=== PATIENT | male | born 1980 | race Caucasian/White ===

== ENCOUNTER → 2017-01-05 15:09 | Emergency (ER) | payer SELFPAY ==
[~2017-01-05 15:09] MED LIST: AMBIEN5 MG PO; ATENOLOL25 MG PO; ATIVAN1 M1 PO; AUGMENTIN 875-1 EAC1 PO; AUGMENTIN 875-11 TAB PO; Atenolol PO; BLOOD PRESSURE MED; CEFDINIR300 MG PO; CLEOCIN HCL300 M1 PO; COMPAZINE10 M PO; COMPAZINE10 MG PO; COMPAZINE25 M1 PR; COMPAZINE25 M1 RC; COMPAZINE25 MG/SUPP; COMPAZINE25 MG/SUPP PR; COZAAR25 MG; FLORINEF PO; HALDOL1 MG/TA1 PO; HALOPERIDOL1 MG PO; IMITREX SQ; IMITREX6 MG/0.5 M; INDERAL40 MG PO; K CL-2020 MEQ/15 PO; K-DUR10 ME1 PO; K-DUR20 ME1 PO; K-DUR20 MEQ PO; LEXAPRO10 MG PO; LISINOPRIL10 MG PO; MILK OF MA2400 MG/10 PO; MIRALAX17 GM PO; MOTRIN800 MG PO; NORCO 5/325 TAB1 TAB PO; PEN-VEE K500 MG PO; PHENERGAN12.5 M2 PR; PHENERGAN25 M1 PO; PHENERGAN25 M2 RC; PHENERGAN25 M3 RC; PHENERGAN25 M4 PR; PHENERGAN25 MG/SUP1 PR; PHENERGAN25 MG/SUPP; PHENERGAN25 MG/SUPP RC; POTASSIUM CHLO10 MEQ PO; POTASSIUM CHLO20 ME3 PO; POTASSIUM CHLO20 MEQ PO; REGLAN10 MG; REGLAN5 MG PO; TENORMIN25 MG; TENORMIN25 MG PO; TYLENOL TA325 MG/TA1 PO; TYLENOL325 M2 PO; TYLENOL325 MG PO; ZOFRAN ODT4 MG/UDTAB; ZOFRAN ODT4 MG/UDTAB PO; ZOFRAN ODT8 MG PO; ZOFRAN ODT8 MG/TAB PO; ZOFRAN4 M2 PO; ZOFRAN4 MG PO; ZOFRAN8 MG PO; [UNRECOGNIZED DRUG - REMARK] PO
== END | disposition left against medical advice (07) ==
LOC: EDMED 15:09
DX: R11.10 Vomiting, unspecified (principal); Z53.21 Procedure and treatment not carried out due to patient leaving prior to being seen by health care provider

== ENCOUNTER 2017-01-06 05:12 | Emergency (ER) | payer SELFPAY ==
[~2017-01-06 05:12] MED LIST changes: -COMPAZINE10 MG PO; -PHENERGAN12.5 M2 PR
[2017-01-06 06:55] LABS: BASO % 0.1 % (0-2); EOS % 0.1 % (0-7); HCT-HEMATOCRIT 53.9 % (36.0-53.5); HGB-HEMOGLOBIN 19.5 gm/dl (13.5-17.0); IMMATURE GRANULOCYTES ABSOLUTE 0.05 tho/cmm (0-0.03); IMMATURE GRANULOCYTES PERCENT 0.3 % (0-0.3); LYMPH % 15.1 % (20-45); LYMPH ABSOLUTE COUNT 2.4 tho/cmm (0.8-4.5); MCH (MEAN CORPUSCULAR HGB) 31.4 pg (28.0-32.0); MCHC MEAN CORPUSCULAR HGB CONC 36.2 % (32.0-36.0); MCV (MEAN CELL VOLUME) 86.8 fl (82.0-96.0); MEAN PLATELET VOLUME 11.7 cmc (9.4-12.4); MONO % 11.5 % (0-12); MONOCYTE ABSOLUTE COUNT 1.9 tho/cmm (0.0-1.2); NEUTROPHIL ABSOLUTE COUNT 11.8 tho/cmm (1.6-8.0); NEUTROPHIL-AUTOMATED 11.8 tho/cmm (1.6-8.0); NEUTROPHILS % 72.9 % (40-80); PLATELET COUNT 296 tho/cmm (150-450); RED BLOOD COUNT 6.21 mil/cmm (4.40-5.70); RED CELL DISTRIBUTION WIDTH 12.4 % (12.4-16.4); WHITE BLOOD COUNT 16.2 tho/cmm (4.0-10.0)
[2017-01-06 07:17] LABS: ALB/GLOB RATIO 1.6 (0.8-2.0); ALBUMIN 5.2 g/dl (3.5-5.0); ALKALINE PHOSPHATASE 95 U/L (33-138); ALT/SGPT 35 U/L (12-78); BILIRUBIN,TOTAL 1.1 mg/dl (0.0-1.5); BLOOD UREA NITROGEN 36 mg/dl (6-24); CALCIUM 10.1 mg/dl (8.5-10.5); CARBON DIOXIDE-VENOUS 31 mmol/L (22-32); CHLORIDE 90 mmol/l (96-110); CREATININE 1.69 mg/dl (0.60-1.30); GLUCOSE 133 mg/dL (70-110); LIPASE 95 U/L (73-393); SODIUM 136 mmol/L (135-145); eGFR VALUE FOR BLACK 60 mL/Min
[2017-01-06 07:26] LABS: ANION GAP 19 mmol/L (0-20); AST/SGOT 36 U/L (10-40); POTASSIUM 3.7 mmol/L (3.7-5.1)
[2017-01-06] MEDS ORDERED: ZOFRAN4 M2 PO (10:28)
[2017-07-16] MEDS ORDERED: COMPAZINE10 MG PO (20:57)
== END 2017-01-06 10:37 ==
LOC: EDMED 05:12
PROVIDERS: Emergency Medicine
DX: G43.A0 Cyclical vomiting, in migraine, not intractable (principal); E86.0 Dehydration; N28.9 Disorder of kidney and ureter, unspecified; F17.200 Nicotine dependence, unspecified, uncomplicated
CPT/HCPCS: J0780; J2060; J2405; J7030

== ENCOUNTER 2017-02-19 17:21 | Emergency (ER) | payer SELFPAY ==
[2017-02-19 20:25] LABS: ANION GAP 18 mmol/L (0-20); BLOOD UREA NITROGEN 50 mg/dl (6-24); CALCIUM 9.8 mg/dl (8.5-10.5); CARBON DIOXIDE-VENOUS 32 mmol/L (22-32); CHLORIDE 86 mmol/l (96-110); CREATININE 1.75 mg/dl (0.60-1.30); GLUCOSE 119 mg/dL (70-110); LIPASE 113 U/L (73-393); SODIUM 133 mmol/L (135-145); eGFR VALUE FOR BLACK 58 mL/Min
[2017-02-19 20:27] LABS: POTASSIUM 3.1 mmol/L (3.7-5.1)
[2017-02-19 22:45] LABS: URINE BILIRUBIN NEGATIVE (NEG); URINE BLOOD NEGATIVE (NEG); URINE GLUCOSE (UA) NEGATIVE (NEG); URINE KETONE MODERATE (NEG); URINE LEUKOCYTE ESTERASE NEGATIVE (NEG); URINE NITRITE NEGATIVE (NEG); URINE PROTEIN MODERATE (NEG)
[2017-02-19 22:54] LABS: URINE APPEARANCE HAZY; URINE COLOR YELLOW
[2017-02-19 22:56] LABS: URINE AMORPHOUS 1+; URINE EPITHELIAL CELLS RARE /[HPF] (0-10); URINE RBC 0 /[HPF] (0-5); URINE WBC 0-1 /[HPF] (0-5)
[2017-02-19] MEDS ORDERED: PHENERGAN12.5 M2 PR (23:31)
[2017-07-16] MEDS ORDERED: COMPAZINE10 MG PO (20:57)
== END 2017-02-19 23:37 ==
LOC: EDMED 17:21
PROVIDERS: Emergency Medicine
DX: E86.0 Dehydration (principal); G43.A0 Cyclical vomiting, in migraine, not intractable; N18.9 Chronic kidney disease, unspecified; F17.200 Nicotine dependence, unspecified, uncomplicated
CPT/HCPCS: J2060; J2405; J7030